=== PATIENT | male | born 2000 | race Caucasian/White ===

== ENCOUNTER → 2021-08-24 14:54 | Outpatient (CLI) | payer BC, SELFPAY ==
[2021-08-24 17:15] LABS: D-Dimer 0.36 ug/mL (0.0-0.5)
[2021-08-24 17:19] LABS: Basophils # 0.1 K/mm3 (0-0.2); Basophils % 1.4 % (0.1-2.0); Hematocrit 51.7 % (42.0-52.0); Hemoglobin 17.1 g/dL (14.1-18.0); Lymphocytes # 1.6 K/mm3 (0.7-4.5); Mean Corpuscular HGB Conc 33.1 g/dL (31.8-35.4); Mean Corpuscular Hemoglobin 32.3 pg (27.0-31.2); Mean Corpuscular Volume 97.7 fl (80-94); Mean Platelet Volume 8.3 fl (7.4-10.4); Monocytes # 0.6 K/mm3 (0.1-1.0); Monocytes % 12.3 % (1.7-9.3); Neutrophils # 2.4 K/mm3 (1.8-7.8); Neutrophils % 51.4 % (37.0-80.0); Platelet Count 263 K/mm3 (142-424); Red Blood Count 5.29 M/mm3 (4.60-6.20); Red Cell Distribution Width 13.8 % (11.5-17.5); White Blood Count 4.6 K/mm3 (4.8-10.8)
[2021-08-24 17:32] LABS: C-Reactive Protein 0.4 mg/L (0-4)
== END ==
PROVIDERS: Visit Provider Internal Medicine Pulmonary Disease
DX: R06.00 Dyspnea, unspecified (principal); J45.909 Unspecified asthma, uncomplicated
CPT/HCPCS: 36415; 85025; 85378; 86140

== ENCOUNTER → 2021-09-06 08:24 | Outpatient (CLI) | payer BC, SELFPAY ==
--- NOTE | 2021-09-06 09:42 | NM_ITS ---
FINAL REPORT CLINICAL HISTORY: SOB, hx of covid august 2020 10:00am 35.5 MCI TC DTPA 10:30AM 8.27 MCI TC MAA COMPARISON: Chest x-ray 09/06/2021 FINDINGS: LUNG PERFUSION & VENTILATION SINGLE: Multiple projection images of the lungs were obtained after intravenous injection of 8.27 MCI TC MAA and the inhalation of 35.5 mCi technetium DTPA magnesium aerosol. There is no segmental or subsegmental perfusion or ventilation defect identified. There is no evidence of pulmonary embolism. IMPRESSION: Normal V/Q scan with no evidence of pulmonary embolism. Reviewed, Interpreted and Dictated by Ney Hagan III, MD Transcribed by Yvette Robbins Authenticated and [facility]
--- NOTE | 2021-09-06 10:41 | XR_ITS ---
FINAL REPORT CLINICAL HISTORY: SOB, VQ SCAN ALSO DONE TODAY hx of covid august 2020 FINDINGS: Two views of the chest were obtained. The heart size and pulmonary vascularity are within normal limits. The mediastinum is normal. No acute pulmonary abnormality is identified. There is no pneumothorax. The bony thorax is intact. IMPRESSION: No active cardiopulmonary disease. Reviewed, Interpreted and Dictated by Ney Hagan III, MD Transcribed by Yvette Robbins Authenticated and [facility]
--- NOTE | 2021-09-06 10:50 | HMH.ITSHM ---
Current Home Medications as stated by this patient Tyler Edouard or litigation claim representative. []INHALER
== END ==
PROVIDERS: Visit Provider Internal Medicine Pulmonary Disease
DX: R06.00 Dyspnea, unspecified (principal); R06.09 Other forms of dyspnea; U09.9 Post COVID-19 condition, unspecified
CPT/HCPCS: 71046; 78582; 94060; 94618; 94726; 94729; A9540; A9567